=== PATIENT | male | born 1975 | race Native Hawaiian/Other Pacific Islander ===

== ENCOUNTER 2016-06-04 23:07 | Emergency (ER) | payer OTHER ==
[~2016-06-04] VITALS: Ht 170.2 cm; Wt 104.3 kg
[2016-06-04 23:51] LABS: PLATELET COUNT 390 K/uL (142-355)
== END 2016-06-05 00:27 | disposition home or self-care (01) ==
LOC: ED 23:07
DX: M54.5 Low back pain (principal); M47.897 Other spondylosis, lumbosacral region
CPT/HCPCS: 81000; 85027; 96372; 99283; J1885

== ENCOUNTER 2018-05-23 09:16 | Emergency (ER) | payer OTHER ==
[~2018-05-23] VITALS: Ht 170.2 cm; Wt 108.9 kg
[2018-05-23 09:21] VITALS: BP 165/103; TEMP 98
== END 2018-05-23 09:54 | disposition home or self-care (01) ==
LOC: ED 09:16
DX: K08.89 Other specified disorders of teeth and supporting structures (principal); K02.9 Dental caries, unspecified; K04.7 Periapical abscess without sinus; I10 Essential (primary) hypertension
CPT/HCPCS: 99281

== ENCOUNTER 2020-07-20 10:55 | Emergency (ER) | payer OTHER ==
[~2020-07-20] VITALS: Ht 170.2 cm; Wt 113.4 kg
[2020-07-20 14:05] VITALS: BP 141/85; TEMP 98.6
== END 2020-07-20 14:05 | disposition home or self-care (01) ==
LOC: ED 10:55
DX: S16.1XXA Strain of muscle, fascia and tendon at neck level, initial encounter (principal); S39.012A Strain of muscle, fascia and tendon of lower back, initial encounter; V49.60XA Unspecified car occupant injured in collision with unspecified motor vehicles in traffic accident, initial encounter; Y92.89 Other specified places as the place of occurrence of the external cause
CPT/HCPCS: 96372; 99283; J1885

== ENCOUNTER 2021-05-23 22:23 | Emergency (ER) | payer OTHER ==
[~2021-05-23] VITALS: Ht 170.2 cm; Wt 98.0 kg
[2021-05-23 23:11] VITALS: BP 187/105; TEMP 97.8
== END 2021-05-23 23:11 | disposition home or self-care (01) ==
LOC: ED 22:23
PROC: 0T9B70Z Drainage of Bladder with Drainage Device, Via Natural or Artificial Opening (ICD-10-PCS; principal; 2021-05-23)
DX: N35.811 Other urethral stricture, male, meatal (principal)
CPT/HCPCS: 51702; 99283

== ENCOUNTER 2022-10-26 10:01 | Emergency (ER) | payer OTHER ==
[~2022-10-26] VITALS: Ht 170.2 cm; Wt 110.2 kg
[2022-10-26 10:05] VITALS: TEMP 98.3
[2022-10-26 11:35] VITALS: BP 145/95
== END 2022-10-26 11:35 | disposition home or self-care (01) ==
LOC: ED 10:01
DX: S29.012A Strain of muscle and tendon of back wall of thorax, initial encounter (principal); I10 Essential (primary) hypertension
CPT/HCPCS: 96372; 99283; J1885; J2930